=== PATIENT | female | born 1960 | race Two or more races ===

== ENCOUNTER 2022-09-01 13:36 | Inpatient (IN) | payer OTHER, MEDICAID ==
[~2022-09-01] VITALS: Ht 172.7 cm; Wt 149.7 kg
[2022-09-01 15:02] LABS: BASOPHILS % 0.8 % (0.0-2.0); EOSINOPHILS % 1.1 % (0.0-5.0); HEMATOCRIT. 33.1 % (36.0-48.0); HEMOGLOBIN. 10.7 g/dL (12.0-16.0); LYMPHOCYTES % 16.2 % (20.0-50.0); MEAN CORPUSCULAR HEMOGLOBIN 30.5 pg (28.0-32.0); MEAN CORPUSCULAR VOLUME 94.2 fL (81.0-99.0); MEAN PLATELET VOLUME 6.7 fl (7.4-10.4); MONOCYTES % 9.5 % (2.0-8.0); NEUTROPHILS % 72.4 % (40.0-76.0); PLATELET 260 x1000/uL (130-400); RED BLOOD CELL COUNT 3.52 mill/uL (4.2-5.4); RED CELL DISTRIBUTION WIDTH 18.8 % (11.6-14.6)
[2022-09-01 15:10] LABS: CHLORIDE 106 mEq/L (98-107)
[2022-09-01] MEDS ORDERED: CEFAZOLIN 1000MG PREMIX 50 ML IV ONE (15:45)
[2022-09-01 20:40] VITALS: BP 135/70
[2022-09-01] MEDS ORDERED: IPRATROPIUM/ALBUTEROL 0.5-3(2.5)MG/3ML NEB HHN PRN (21:15)
[2022-09-01] MEDS ORDERED: ONDANSETRON HCL 4MG/2ML INJ IV PRN (21:15)
[2022-09-01] MEDS ORDERED: CLONIDINE 0.1MG TABLET PO PRN (21:15)
[2022-09-01] MEDS ORDERED: ACETAMINOPHEN 325MG TABLET PO PRN (21:15)
[2022-09-01] MEDS ORDERED: IPRATROPIUM BROMIDE (0.02%) 0.5MG/2.5ML NEB HHN PRN (21:30)
[2022-09-01] MEDS ORDERED: ALBUTEROL (0.083%) 2.5MG/3ML NEB HHN PRN (21:30)
[2022-09-01] MEDS ORDERED: NALOXONE HCL 0.4MG/ML VIAL IV PRN (21:30)
[2022-09-01] MEDS ORDERED: DEXTROSE 50% WATER 50ML SYRINGE IV PRN (22:00)
[2022-09-01] MEDS: ATORVASTATIN CALCIUM 20MG TABLET PO SCH (22:26)
[2022-09-01] MEDS: CEFTRIAXONE 1,000 MG in DEXTROSE 5% WATER 50 ML IV SCH (22:26)
[2022-09-01] MEDS ORDERED: VANCOMYCIN 2,000 MG in DEXT 5% WATER 500 ML IV SCH (23:00)
[2022-09-01 23:59] LABS: CREATINE KINASE MB FRACTION 3.1 ng/mL (0.5-3.6)
[2022-09-02] VITALS: BP 124/58
[2022-09-02] MEDS ORDERED: METF-873 PO (05:11)
[2022-09-02] MEDS ORDERED: DEXL60CA3 MT (05:11)
[2022-09-02] MEDS ORDERED: ATOR20TA65 PO (05:11)
[2022-09-02] MEDS ORDERED: DOXY100C5 PO (05:11)
[2022-09-02] MEDS ORDERED: SITA25TA3 PO (05:11)
[2022-09-02] MEDS ORDERED: RIVA20TA PO (05:11)
[2022-09-02] MEDS ORDERED: DULO60CA64 MT (05:11)
[2022-09-02] MEDS ORDERED: LEVO75TA7 PO (05:11)
[2022-09-02] MEDS ORDERED: GLIM2TAB30 PO (05:11)
[2022-09-02] MEDS ORDERED: PRAM1TAB6 PO (05:11)
[2022-09-02] MEDS ORDERED: LORA-249 PO (05:11)
[2022-09-02] MEDS: LEVOTHYROXINE SODIUM 75MCG TABLET PO SCH (05:46)
[2022-09-02] MEDS: PRAMIPEXOLE DI-HCL 0.25MG TABLET PO SCH ×3 (05:46→21:27)
[2022-09-02] MEDS: INSULIN LISPRO 100 UNITS/ML SUBCUT SCH ×4 (05:55→21:00)
[2022-09-02] MEDS: BLOOD SUGAR DIAGNOSTIC STRIP TEST SCH ×4 (05:55→21:26)
[2022-09-02 08:00] VITALS: BP 128/59
[2022-09-02] MEDS: DULOXETINE HCL 60MG DR CAPSULE PO SCH (08:13)
[2022-09-02 09:01] LABS: CREATINE KINASE MB FRACTION 2.6 ng/mL (0.5-3.6)
[2022-09-02 09:07] LABS: *AMPHETAMINES SCREEN URINE PRESUMTIVE POSITIVE (NEGATIVE); *BARBITURATES SCREEN URINE NEGATIVE (NEGATIVE); *BENZODIAZEPINES SCREEN URINE NEGATIVE (NEGATIVE); *COCAINE SCREEN URINE NEGATIVE (NEGATIVE); CANNABINOID URINE SCREEN PRESUMTIVE POSITIVE (NEGATIVE); METHADONE URINE SCREEN NEGATIVE (NEGATIVE); OPIATES URINE SCREEN NEGATIVE (NEGATIVE); PHENCYCLIDINE URINE SCREEN NEGATIVE (NEGATIVE)
[2022-09-02] MEDS ORDERED: FUROSEMIDE 40MG/4ML VIAL IVP NR (11:45)
[2022-09-02 12:00] VITALS: BP 125/60
[2022-09-02 13:18] LABS: T4 FREE 1.09 ng/dL (0.76-1.46)
[2022-09-02 16:00] VITALS: BP 120/61
[2022-09-02] MEDS ORDERED: VANCOMYCIN 1.25GM PMX (XELLIA) 250 ML IV SCH (18:00)
[2022-09-02] MEDS ORDERED: RIVAROXABAN 20 MG TABLET PO SCH (18:15)
[2022-09-02 20:00] VITALS: BP 124/72
[2022-09-02] MEDS: ATORVASTATIN CALCIUM 20MG TABLET PO SCH (21:27)
[2022-09-02] MEDS: CEFTRIAXONE 1,000 MG in DEXTROSE 5% WATER 50 ML IV SCH (21:27)
[2022-09-03] VITALS: BP 132/77
[2022-09-03] MEDS: HYDROCODONE/ACETAMINOPHEN 5/325MG TABLET PO PRN ×2 (03:24→09:24)
[2022-09-03] MEDS: PRAMIPEXOLE DI-HCL 0.25MG TABLET PO SCH (06:55)
[2022-09-03] MEDS: LEVOTHYROXINE SODIUM 75MCG TABLET PO SCH (06:55)
[2022-09-03] MEDS: INSULIN LISPRO 100 UNITS/ML SUBCUT SCH (07:00)
[2022-09-03 08:00] VITALS: BP 119/65
[2022-09-03] MEDS: BLOOD SUGAR DIAGNOSTIC STRIP TEST SCH (09:00)
[2022-09-03] MEDS: DULOXETINE HCL 60MG DR CAPSULE PO SCH (09:22)
[2022-09-03 09:24] VITALS: BP 119/65
== END 2022-09-03 12:02 | disposition left against medical advice (07) | DRG 603 ==
LOC: ER 13:36 → 4WST 17:11 → EDBEDREQ 17:42 → EDBEDREQTM 17:42
PROVIDERS: ADMIT Internal Medicine; ATTEND Internal Medicine
DX: L03.115 Cellulitis of right lower limb (principal); L03.116 Cellulitis of left lower limb; I10 Essential (primary) hypertension; E11.9 Type 2 diabetes mellitus without complications; D64.9 Anemia, unspecified; F32.A Depression, unspecified; E03.9 Hypothyroidism, unspecified; Z79.4 Long term (current) use of insulin; Z53.29 Procedure and treatment not carried out because of patient's decision for other reasons
CPT/HCPCS: 36415; 71045; 76705; 80053; 80305; 82553; 82962; 83036; 84439; 84443; 84484; 85025; 93306; 93970; 99285; J0690; J0696; J1940; J3370; J7060

== ENCOUNTER 2022-10-18 18:23 | Inpatient (IN) | payer OTHER, MEDICAID ==
[~2022-10-18] VITALS: Ht 172.7 cm; Wt 113.4 kg
[~2022-10-18 18:23] MED LIST: ATOR20TA65 PO; DEXL60CA3 MT; DOXY100C5 PO; DULO60CA64 MT; GLIM2TAB30 PO; LEVO75TA7 PO; LORA-249 PO; METF-873 PO; PRAM1TAB6 PO; RIVA20TA PO; SITA25TA3 PO
[2022-10-18 18:50] LABS: BASOPHILS % 0.6 % (0.0-2.0); EOSINOPHILS % 2.1 % (0.0-5.0); HEMATOCRIT. 36.4 % (36.0-48.0); HEMOGLOBIN. 11.9 g/dL (12.0-16.0); LYMPHOCYTES % 22.6 % (20.0-50.0); MEAN CORPUSCULAR HEMOGLOBIN 29.2 pg (28.0-32.0); MEAN PLATELET VOLUME 6.7 fl (7.4-10.4); MONOCYTES % 6.8 % (2.0-8.0); NEUTROPHILS % 67.9 % (40.0-76.0); PLATELET 347 x1000/uL (130-400); RED BLOOD CELL COUNT 4.09 mill/uL (4.2-5.4); RED CELL DISTRIBUTION WIDTH 16.4 % (11.6-14.6)
[2022-10-18 18:57] LABS: CHLORIDE 105 mEq/L (98-107)
[2022-10-18 20:27] LABS: PARTIAL THROMBOPLASTIN TIME 31.3 sec (23.4-31.0); PROTHROMBIN TIME 10.7 sec (9.6-11.0)
[2022-10-19] MEDS ORDERED: MORPHINE SULFATE 4 MG/ML CPJ (NOT FOR IM USE) IV ONE (01:00)
[2022-10-19] MEDS ORDERED: ENOXAPARIN 150MG/ML SYR SUBCUT NR (01:15)
[2022-10-19 07:33] LABS: CLARITY URINE CLOUDY (CLEAR); COLOR URINE YELLOW (YELLOW); KETONES URINE NEGATIVE (NEGATIVE); LEUKOCYTE ESTERASE URINE 2+ (NEGATIVE); NITRITE URINE POSITIVE (NEGATIVE); OCCULT BLOOD URINE NEGATIVE (NEGATIVE); PH URINE 6.5 (4.5-8.0); PROTEIN URINE NEGATIVE (NEGATIVE); SPECIFIC GRAVITY URINE 1.011 (1.005-1.030)
[2022-10-19 14:10] VITALS: BP 115/71
[2022-10-19] MEDS ORDERED: ACETAMINOPHEN 325MG TABLET PO PRN (15:45)
[2022-10-19] MEDS ORDERED: DEXTROSE 50% WATER 50ML SYRINGE IV PRN (16:00)
[2022-10-19] MEDS: INSULIN LISPRO 100 UNITS/ML SUBCUT SCH ×2 (17:12→21:00)
[2022-10-19] MEDS: BLOOD SUGAR DIAGNOSTIC STRIP TEST SCH ×2 (17:12→21:00)
[2022-10-19] MEDS ORDERED: PNEUMOCOCCAL 23-VAL P-SAC VAC 0.5 ML IM ONE (17:15)
[2022-10-19] MEDS: PANTOPRAZOLE 40MG DR TABLET PO SCH (17:17)
[2022-10-19] MEDS: ENOXAPARIN 120MG/0.8ML SYR SUBCUT SCH (17:18)
[2022-10-20] MEDS: GABAPENTIN 100MG CAPSULE PO SCH ×2 (06:14→13:50)
[2022-10-20] MEDS: ENOXAPARIN 120MG/0.8ML SYR SUBCUT SCH ×2 (06:15→18:40)
[2022-10-20] MEDS ORDERED: LEVOTHYROXINE SODIUM 75MCG TABLET PO SCH (07:20)
[2022-10-20] MEDS: INSULIN LISPRO 100 UNITS/ML SUBCUT SCH ×2 (07:50→12:50)
[2022-10-20] MEDS: PANTOPRAZOLE 40MG DR TABLET PO SCH (07:51)
[2022-10-20] MEDS: BLOOD SUGAR DIAGNOSTIC STRIP TEST SCH ×2 (07:52→12:20)
[2022-10-20 08:00] VITALS: BP 121/73
[2022-10-20] MEDS ORDERED: CEFTRIAXONE 1GM PREMIX 50 ML IV SCH (11:15)
[2022-10-20 12:00] VITALS: BP 142/85
[2022-10-20] MEDS ORDERED: CEFTRIAXONE 1,000 MG in DEXTROSE 5% WATER 50 ML IV SCH (13:00)
[2022-10-20 13:56] LABS: *AMPHETAMINES SCREEN URINE NEGATIVE (NEGATIVE); *BARBITURATES SCREEN URINE NEGATIVE (NEGATIVE); *BENZODIAZEPINES SCREEN URINE NEGATIVE (NEGATIVE); *COCAINE SCREEN URINE NEGATIVE (NEGATIVE); CANNABINOID URINE SCREEN PRESUMTIVE POSITIVE (NEGATIVE); METHADONE URINE SCREEN NEGATIVE (NEGATIVE); OPIATES URINE SCREEN PRESUMTIVE POSITIVE (NEGATIVE); PHENCYCLIDINE URINE SCREEN NEGATIVE (NEGATIVE)
[2022-10-20 16:00] VITALS: BP 121/74
== END 2022-10-20 19:05 | disposition home or self-care (01) | DRG 300 ==
LOC: ER 18:23 → 6EST 10-19 04:36 → EDBEDREQSVC 10-19 04:52 → EDBEDREQ 10-19 04:52 → EDBEDREQTM 10-19 04:52
PROVIDERS: ADMIT Internal Medicine; ATTEND Internal Medicine
DX: I82.412 Acute embolism and thrombosis of left femoral vein (principal); N39.0 Urinary tract infection, site not specified; E11.9 Type 2 diabetes mellitus without complications; E66.01 Morbid (severe) obesity due to excess calories; I82.432 Acute embolism and thrombosis of left popliteal vein; M54.16 Radiculopathy, lumbar region; Z79.01 Long term (current) use of anticoagulants; Z91.199 Patient's noncompliance with other medical treatment and regimen due to unspecified reason; Z79.4 Long term (current) use of insulin; Z68.38 Body mass index [BMI] 38.0-38.9, adult
CPT/HCPCS: 36415; 71045; 72148; 80053; 80305; 81003; 82962; 83036; 83880; 84484; 85025; 87077; 87186; 93005; 93971; 99285; J0696; J1650; J2270; J7060